=== PATIENT | female | born 1965 | race Two or more races ===

== ENCOUNTER 2020-07-27 19:58 | Emergency (ER) | payer SELFPAY ==
[~2020-07-27] VITALS: Ht 154.9 cm; Wt 68.1 kg
[2020-07-27 20:30] LABS: BASO # 0.1 x10^3/uL (0.0-0.2); BASO % 1 % (0-3); EOS # 0.2 x10^3/uL (0.0-0.7); EOS % 2 % (0-3); HEMATOCRIT 40.8 % (36.0-47.0); HEMOGLOBIN 14.6 g/dL (12.0-15.5); LYMPH # 2.8 x10^3/uL (1.0-4.8); LYMPH % 36 % (24-48); MEAN CORPUSCULAR HEMOGLOBIN 31 pg (25-35); MEAN CORPUSCULAR HGB CONC 36 g/dL (31-37); MEAN CORPUSCULAR VOLUME 86 fL (79-100); MONO # 0.6 x10^3/uL (0.0-1.1); MONO % 7 % (0-9); NEUT # 4.2 x10^3/uL (1.8-7.7); NEUT % 54 % (31-73); PLATELET COUNT 221 x10^3/uL (140-400); RED BLOOD COUNT 4.75 x10^6/uL (3.50-5.40); RED CELL DISTRIBUTION WIDTH 12.9 % (11.5-14.5); WHITE BLOOD COUNT 7.8 x10^3/uL (4.0-11.0)
[2020-07-27 20:32] LABS: BILIRUBIN,URINE NEGATIVE (NEG); CLARITY,URINE CLEAR; COLOR,URINE YELLOW; NITRITE,URINE NEGATIVE (NEG); PH,URINE 5.5 (<5.0-8.0); PROTEIN,URINE NEGATIVE (NEG-TRACE)
[2020-07-27 20:41] LABS: BACTERIA,URINE MODERATE /HPF (0-FEW); WBC,URINE >40 /HPF (0-4)
[2020-07-27 20:45] LABS: CALCIUM 9.6 mg/dL (8.5-10.1); CREATININE 0.9 mg/dL (0.6-1.0); GFR 64.8; POTASSIUM 3.5 mmol/L (3.5-5.1)
[2020-07-27 20:52] LABS: ALBUMIN 4.1 g/dL (3.4-5.0); ALBUMIN/GLOBULIN RATIO 1.1 (1.0-1.7); TOTAL BILIRUBIN 0.4 mg/dL (0.2-1.0); TOTAL PROTEIN 7.8 g/dL (6.4-8.2)
--- NOTE | 2020-07-27 20:56 | EKG ---
[facility] [address] [place] [address] Test Date: 2020-07-27 Test Time: 20:35:00 Pat Name: BRITTA FRANK Department: Room: Gender: F Professor Of Religion: : 1965 Requested By: CODY MINOR Order Number: [id number] Reading MD: Measurements Intervals Collins Rate: 70 P: 42 TN: 206 QRS: -4 QRSD: 82 T: 46 QT: 422 QTc: 459 Interpretive Statements SINUS RHYTHM LEFTWARD AXIS QRS(T) CONTOUR ABNORMALITY CONSISTENT WITH ANTEROSEPTAL INFARCT AGE UNDETERMINED ABNORMAL ECG RI6.02 No previous ECG available for comparison
[2020-07-27] MEDS ORDERED: METOCLOPRAMIDE HCL 10 MG/2 ML VIAL. IVP ONE (21:30)
[2020-07-27] MEDS ORDERED: CONTRAST GIVEN. MC PRN (21:30)
[2020-07-27] MEDS ORDERED: fentaNYL PF VIAL 100 MCG/2 ML VIAL IVP ONE (21:30)
[2020-07-27] MEDS ORDERED: IV NORMAL SALINE 1000ML BAG 1,000 ML IV ONE (21:30)
--- NOTE | 2020-07-27 21:51 | RAD ---
Exam: Chest one view INDICATION: Epigastric pain TECHNIQUE: Frontal view of the chest Comparisons: None FINDINGS: The cardiomediastinal silhouette and pulmonary vessels are within normal limits. The lung and pleural spaces are clear. IMPRESSION: No acute cardiopulmonary process. Electronically signed by: Austyn Madison MD (07/27/2020 9:49 PM) ARCHANA
--- NOTE | 2020-07-27 21:59 | PHYS DOC ---
Past Medical History Past Medical History: Diabetes-Type II, High Cholesterol, Hypertension Past Surgical History: Cholecystectomy Smoking Status: Never Smoker Alcohol Use: None General Adult EDM: Chief Complaint: ABDOMINAL PAIN HPI: HPI: Patient is a 54 year old female who presents with 6 days of epigastric tightness or fullness with right lower side of abdomen aching pain with painful urination. Patient states she does have some nausea but no vomiting. She denies vomiting, diarrhea, constipation, chest pain, shortness of breath, cough, fever, headache, dizziness, vision change, focal weakness, numbness or tingling. She has a history of diabetes, high cholesterol, hypertension, cholecystectomy. She rates her discomfort at a 7 out of 10. Review of Systems: Review of Systems: Constitutional: Denies fever or chills. [] Eyes: Denies change in visual acuity. [] HENT: Denies nasal congestion or sore throat. [] Respiratory: Denies cough or shortness of breath. [] Cardiovascular: Denies chest pain or edema. [] GI: + Right sided abdominal pain, +nausea, vomiting, bloody stools or diarrhea. [] : Denies dysuria. + Burning with urination [] Musculoskeletal: Denies back pain or joint pain. [] Integument: Denies rash. [] Neurologic: Denies headache, focal weakness or sensory changes. [] Endocrine: Denies polyuria or polydipsia. [] Lymphatic: Denies swollen glands. [] Psychiatric: Denies depression or anxiety. [] Heart Score: C/O Chest Pain: No Risk Factors: Risk Factors: DM, Current or recent (<one month) smoker, HTN, HLP, family history of CAD, obesity. Risk Scores: Score 0 - 3: 2.5% MACE over next 6 weeks - Discharge Home Score 4 - 6: 20.3% MACE over next 6 weeks - Admit for Clinical Observation Score 7 - 10: 72.7% MACE over next 6 weeks - Early Invasive Strategies Current Medications: Current Medications Medications (Trade) Dose Ordered Sig/Erika Start Time Stop Time Status Last Admin Dose Admin Ceftriaxone Sodium (Rocephin) 1 gm 1X ONCE 07/27/20 22:00 07/27/20 22:01 07/27/20 21:52 1 GM Fentanyl Citrate (Fentanyl 2ml Vial) 50 mcg 1X ONCE 07/27/20 21:30 07/27/20 21:31 DC 07/27/20 21:46 50 MCG Info (CONTRAST GIVEN -- Rx MONITORING) 1 each PRN DAILY PRN 07/27/20 21:30 07/29/20 21:29 Iohexol (Omnipaque 300 Mg/ml) 75 ml 1X ONCE 07/27/20 22:00 07/27/20 22:01 07/27/20 21:39 75 ML Metoclopramide HCl (Reglan Vial) 10 mg 1X ONCE 07/27/20 21:30 07/27/20 21:31 DC 07/27/20 21:47 10 MG Sodium Chloride 1,000 ml @ 1,000 mls/hr 1X ONCE 07/27/20 21:30 07/27/20 22:29 07/27/20 21:47 1,000 MLS/HR Allergies: Allergies: Allergies Coded Allergies Type Severity Reaction Last Updated Verified No Known Drug Allergies 07/27/20 No Physical Exam: PE: Constitutional: Well developed, well nourished, no acute distress, non-toxic appearance. [] HENT: Normocephalic, atraumatic, bilateral external ears normal, oropharynx moist, no oral exudates, nose normal. [] Eyes: PERRLA, EOMI, conjunctiva normal, no discharge. [] Neck: Normal range of motion, no tenderness, supple, no stridor. [] Cardiovascular:Heart rate regular rhythm, no murmur [] Lungs & Thorax: Bilateral breath sounds clear to auscultation [] Abdomen: Bowel sounds normal, soft, right lower tenderness, no masses, no pulsatile masses. [] Skin: Warm, dry, no erythema, no rash. [] Back: No tenderness, no CVA tenderness. [] Extremities: No tenderness, no cyanosis, no clubbing, ROM intact, no edema. [] Neurologic: Alert and oriented X 3, normal motor function, normal sensory function, no focal deficits noted. [] Psychologic: Affect normal, judgement normal, mood normal. [] Current Patient Data: Labs: Laboratory Tests Test 07/27/20 20:05 07/27/20 20:14 Urine Collection Type Void Urine Color Yellow Urine Clarity Clear Urine pH 5.5 (<5.0-8.0) Urine Specific [place] 1.015 (1.000-1.030) Urine Protein Negative mg/dL (NEG-TRACE) Urine Glucose (UA) >=1000 mg/dL (NEG) Urine Ketones (Stick) Negative mg/dL (NEG) Urine Blood Negative (NEG) Urine Nitrite Negative (NEG) Urine Bilirubin Negative (NEG) Urine Urobilinogen Dipstick 1.0 mg/dL (0.2 mg/dL) Urine Leukocyte Esterase Moderate (NEG) Urine RBC 3-5 /HPF (0-2) Urine WBC >40 /HPF (0-4) Urine Squamous Epithelial Cells Few /LPF Urine Bacteria Moderate /HPF (0-FEW) White Blood Count 7.8 x10^3/uL (4.0-11.0) Red Blood Count 4.75 x10^6/uL (3.50-5.40) Hemoglobin 14.6 g/dL (12.0-15.5) Hematocrit 40.8 % (36.0-47.0) Mean Corpuscular Volume 86 fL (79-100) Mean Corpuscular Hemoglobin 31 pg (25-35) Mean Corpuscular Hemoglobin Concent 36 g/dL (31-37) Red Cell Distribution Width 12.9 % (11.5-14.5) Platelet Count 221 x10^3/uL (140-400) Neutrophils (%) (Auto) 54 % (31-73) Lymphocytes (%) (Auto) 36 % (24-48) Monocytes (%) (Auto) 7 % (0-9) Eosinophils (%) (Auto) 2 % (0-3) Basophils (%) (Auto) 1 % (0-3) Neutrophils # (Auto) 4.2 x10^3/uL (1.8-7.7) Lymphocytes # (Auto) 2.8 x10^3/uL (1.0-4.8) Monocytes # (Auto) 0.6 x10^3/uL (0.0-1.1) Eosinophils # (Auto) 0.2 x10^3/uL (0.0-0.7) Basophils # (Auto) 0.1 x10^3/uL (0.0-0.2) Sodium Level 142 mmol/L (136-145) Potassium Level 3.5 mmol/L (3.5-5.1) Chloride Level 103 mmol/L (98-107) Carbon Dioxide Level 29 mmol/L (21-32) Anion Gap 10 (6-14) Blood Urea Nitrogen 16 mg/dL (7-20) Creatinine 0.9 mg/dL (0.6-1.0) Estimated GFR (Cockcroft-Gault) 64.8 BUN/Creatinine Ratio 18 (6-20) Glucose Level 126 mg/dL (70-99) H Calcium Level 9.6 mg/dL (8.5-10.1) Total Bilirubin 0.4 mg/dL (0.2-1.0) Aspartate Amino Transferase (AST) 26 U/L (15-37) Alanine Aminotransferase (ALT) 35 U/L (14-59) Alkaline Phosphatase 103 U/L (46-116) Troponin I Quantitative < 0.017 ng/mL (0.000-0.055) Total Protein 7.8 g/dL (6.4-8.2) Albumin 4.1 g/dL (3.4-5.0) Albumin/Globulin Ratio 1.1 (1.0-1.7) Lipase 159 U/L (73-393) Laboratory Tests 07/27/20 20:14 Laboratory Tests 07/27/20 20:14 Vital Signs: Vital Signs Date Time Temp Pulse Resp B/P (MAP) Pulse Ox O2 Delivery O2 Flow Rate FiO2 07/27/20 21:46 98 Room Air 07/27/20 21:34 70 21 170/79 (109) 07/27/20 20:09 98.2 98.2 EKG: EK and read by Dr. Hodges as a sinus rhythm and no STEMI Radiology/Procedures: Radiology/Procedures: [] Impression: [facility] [address] [place] [address] IMAGING REPORT Signed PATIENT: BRITTA FRANK DACCOUNT: [id number] : 1965 LOCATION: ER AGE: 54 SEX: F EXAM STATUS: PRE ER ORD. PHYSICIAN: CODY MINOR APRN REASON: epigastric pain PROCEDURE: PORTABLE CHEST 1V Exam: Chest one view INDICATION: Epigastric pain TECHNIQUE: Frontal view of the chest Comparisons: None FINDINGS: The cardiomediastinal silhouette and pulmonary vessels are within normal limits. The lung and pleural spaces are clear. IMPRESSION: No acute cardiopulmonary process. Electronically signed by: Austyn Rea MD (07/27/2020 9:49 PM) [facility] DICTATED and SIGNED BY: AUSTYN REA MD DATE: 07/27/20 [id number] [facility] [address] [place] [address] IMAGING REPORT Signed PATIENT: BRITTA FRANK DACCOUNT: [id number] : 1965 LOCATION: ER AGE: 54 SEX: F EXAM STATUS: PRE ER ORD. PHYSICIAN: CODY MINOR APRN REASON: epigastric and right lower abd pain, OMNI 300, 75 ML IV PROCEDURE: CT ABD PELV W/ IV CONTRST ONLY CT scan of the abdomen and pelvis with contrast 07/27/2020 CLINICAL HISTORY: Epigastric and right lower quadrant abdominal pain. TECHNIQUE: After the intravenous administration of 75 cc of Omnipaque 300 only, contiguous, 5 mm axial sections were obtained through the abdomen and pelvis. One or more of the following individualized dose reduction techniques were utilized for this study: 1. Automated exposure control. 2. Adjustment of the mA and/or kV according to patient size. 3. Use of iterative reconstruction technique. FINDINGS: Images through the lung bases demonstrate minimal dependent subsegmental atelectasis bilaterally. The liver, spleen, pancreas, adrenal glands and left kidney are within normal limits. A 3.2 cm rounded low-attenuation lesion is seen projecting anteriorly from the superior pole the right kidney. This likely represents a cyst. No further imaging evaluation is recommended. The abdominal aorta tapers normally. The gallbladder is contracted. No free fluid or free air is seen within the abdomen. There is no evidence of bowel obstruction. The appendix is well-visualized and is within normal limits. Images through the pelvis demonstrate the urinary bladder distended with urine. No adnexal mass is seen. No free fluid is noted. Minimal S-shaped curvature of the thoracolumbar spine is seen. Degenerative changes are seen involving the lo wer thoracic and throughout the lumbar spine along with both hips. IMPRESSION: No acute abnormality is seen. Electronically signed by: Marv Whitehead MD (07/27/2020 10:05 PM) [id number] DICTATED and SIGNED BY: MARV WHITEHEAD MD DATE: 07/27/20 [id number] Course & Med Decision Making: Course & Med Decision Making Pertinent Labs and Imaging studies reviewed. (See chart for details) See HPI. Alert and oriented x4. Abdomen is soft and tender to the right lower side. Speaks in full clear sentences. She is Fijian-speaking but her family members in the room interpreting for her. Skin pink warm and dry. Vital signs within normal limits. Afebrile. Ambulatory with a steady gait. Urinalysis shows infection. She is given Rocephin and a liter of normal saline. [] Dragon Disclaimer: Dragon Disclaimer: This electronic medical record was generated, in whole or in part, using a voice recognition dictation system. Departure Departure Impression: Primary Impression: Urinary tract infection Qualified Codes: N39.0 - Urinary tract infection, site not specified Additional Impression: Epigastric pain Disposition: HOME / SELF CARE / HOMELESS Condition: STABLE Patient Instructions: Urinary Tract Infection Additional Instructions: Follow-up with primary care provider if needed. Plenty of fluids. Take medication as prescribed and with food. Scripts Ondansetron (ONDANSETRON ODT) 4 Mg Tab.rapdis 1 TAB PO PRN Q6-8HRS, #16 TAB Prov: CODY MINOR APRN 07/27/20 Nitrofurantoin Monohyd/M-Cryst (MACROBID 100 MG CAPSULE) 100 Mg Capsule 1 CAP PO BID for 7 Days, #14 CAP 0 Refills Prov: CODY MINOR APRN 07/27/20 CODY MINOR APRN Jul 27, 2020 21:59
[2020-07-27] MEDS ORDERED: IOHEXOL 300 MG/ML 100ML VIAL. IV ONE (22:00)
[2020-07-27] MEDS ORDERED: cefTRIAXone IV Push 1 GM VIAL. IVP ONE (22:00)
[2020-07-27 22:05] VITALS: BP 139/64
--- NOTE | 2020-07-27 22:08 | RAD ---
CT scan of the abdomen and pelvis with contrast 07/27/2020 CLINICAL HISTORY: Epigastric and right lower quadrant abdominal pain. TECHNIQUE: After the intravenous administration of 75 cc of Omnipaque 300 only, contiguous, 5 mm axia l sections were obtained through the abdomen and pelvis. One or more of the following individualized dose reduction techniques were utilized for this study: 1. Automated exposure control. 2. Adjustment of the mA and/or kV according to patient size. 3. Use of iterative reconstruction technique. FINDINGS: Images through the lung bases demonstrate minimal dependent subsegmental atelectasis bilate rally. The liver, spleen, pancreas, adrenal glands and left kidney are within normal limits. A 3.2 cm rounde d low-attenuation lesion is seen projecting anteriorly from the superior pole the right kidney. This likely represents a cyst. No further imaging evaluation is recommended. The abdominal aorta tapers normally. The gallbladder is contracted. No free fluid or free air is seen within the abdomen. There is no evidence of bowel obstruction. The appendix is well-visualized and i s within normal limits. Images through the pelvis demonstrate the urinary bladder distended with urine. No adnexal mass is se en. No free fluid is noted. Minimal S-shaped curvature of the thoracolumbar spine is seen. Degenerati ve changes are seen involving the lower thoracic and throughout the lumbar spine along with both hips . IMPRESSION: No acute abnormality is seen. Electronically signed by: Marv Whitehead MD (07/27/2020 10:05 PM) [id number]
[2020-07-27] MEDS ORDERED: ONDA4TAB12 PO (22:15)
[2020-07-27] MEDS ORDERED: NITR100C62 PO (22:15)
== END 2020-07-27 22:32 | disposition home or self-care (01) ==
LOC: ER 19:58
DX: N39.0 Urinary tract infection, site not specified (principal); E11.9 Type 2 diabetes mellitus without complications; E78.00 Pure hypercholesterolemia, unspecified; I10 Essential (primary) hypertension; Z90.49 Acquired absence of other specified parts of digestive tract
CPT/HCPCS: 36415; 71045; 74177; 80053; 81001; 83690; 84484; 85025; 87086; 93005; 96361; 96374; 96375; 99285; J0696; J2765; J3010; J7030; Q9967; 87077; 87186